=== PATIENT | female | born 1975 | race Hispanic/Latino ===

== ENCOUNTER 2024-06-14 08:36 | Observation (INO) | payer OTHER ==
--- NOTE | 2024-06-13 11:47 | EKG ---
[facility] Test Date: 2024-06-13 Test Time: 12:46:01 Pat Name: TAVIA KINGSLEY Department: [facility] Room: Gender: F Global Account Executive: [id number] : 1975 Requested By: CRISTY VILLARREAL Order Number: [id number] Reading MD: John Glez Measurements Intervals [place] Rate: 47 P: 40 CA: 162 QRS: 6 QRSD: 82 T: 16 QT: 448 QTc: 396 Interpretive Statements Sinus bradycardia No previous ECG available for comparison Electronically Signed On 06-14-2024 07:40:10 PAPER HANGER by John Glez Please click the below link to view image of tracing.
[2024-06-13 11:53] LABS: BASOPHILS # (AUTO) 0.02 K/uL (0.00-0.20); BASOPHILS % (AUTO) 0.4 % (0.0-5.0); EOSINOPHILS # (AUTO) 0.11 K/uL (0.00-0.70); EOSINOPHILS % (AUTO) 2.4 % (0.0-8.0); HEMATOCRIT 40.9 % (36-48); IMMATURE GRANULOCYTE ABSOLUTE 0.01 K/uL (0-1); LYMPHOCYTES # (AUTO) 1.9 K/uL (1.0-4.8); LYMPHOCYTES % (AUTO) 40.8 % (21.0-51.0); MEAN CORPUSCULAR HEMOGLOBIN 29.9 pg (27.0-33.0); MEAN CORPUSCULAR HGB CONC 33.5 g/dL (32.0-36.0); MEAN CORPUSCULAR VOLUME 89.3 fL (79-99); MONOCYTES # (AUTO) 0.3 K/uL (0.1-1.0); MONOCYTES % (AUTO) 5.9 % (3.0-13.0); NEUTROPHILS # (AUTO) 2.3 K/uL (1.8-7.7); NEUTROPHILS % (AUTO) 50.3 % (40.0-77.0); PLATELET COUNT (AUTO) 268 K/uL (130-400); RED BLOOD CELL COUNT(AUTO) 4.58 MIL/uL (4.00-5.50); WHITE BLOOD COUNT (AUTO) 4.6 K/uL (4.8-10.8)
[2024-06-13 12:08] LABS: CREATININE 0.7 mg/dL (0.5-1.0); POTASSIUM 4.5 mmol/L (3.5-5.1)
[2024-06-13 12:21] VITALS: BP 127/69; PULSE 65; RESP 18; TEMP 98.3
--- NOTE | 2024-06-13 13:14 | NUR ---
report dr goldberg reviewed ekg. ok to proceed
[2024-06-14] VITALS (29 sets, daily range): BP systolic 105–146; BP diastolic 59–88; PULSE 58–91; RESP 14–20; TEMP 97.4–98.1; O2SAT 98
[~2024-06-14] VITALS: Ht 152.4 cm; Wt 73.0 kg
[~2024-06-14 08:36] MED LIST: FAMO40TA7 PO
[2024-06-14] MEDS: LACTATED RINGERS 1000ML 1,000 ML IV ONE ×2 (09:47→16:49)
[2024-06-14] MEDS: ceFAZolin SODIUM 2 GM VIAL ONE (09:47)
[2024-06-14] MEDS ORDERED: TOPI25TA48 PO (09:48)
[2024-06-14] MEDS ORDERED: rocuRONium bROMide 10MG/1ML 5ML VL ONE ×2 (11:37→13:20)
[2024-06-14] MEDS ORDERED: MIDAZOLAM HCL 1 MG/ML 2ML VIAL ONE (11:37)
[2024-06-14] MEDS ORDERED: proPOFol 10 MG/ML 20ML VIAL IV ONE (11:37)
[2024-06-14] MEDS ORDERED: SUCCINYLCHOLINE CHLORIDE 20 MG/ML 10 ML VIAL ONE (11:37)
[2024-06-14] MEDS ORDERED: LIDOCAINE PF 100MG/5ML (2%) SYRINGE 5ML ONE (11:37)
[2024-06-14] MEDS ORDERED: FENTanyl CITRate PF 50 MCG/1 ML 5ML AMP IV ONE (11:38)
[2024-06-14] MEDS ORDERED: BUPIvacaine/PF 0.5% 30ML VIAL ONE (11:53)
[2024-06-14] MEDS ORDERED: phenylEPHRINE HCL 10 MG/ML 1ML VIAL IV ONE (12:33)
[2024-06-14] MEDS ORDERED: EPINEPHrine PF 1MG (1:1,000) 1 MG/ML AMP ONE (12:44)
[2024-06-14] MEDS ORDERED: GLYCOPYRROLATE 0.2 MG/ML 5 ML VIAL ONE (14:04)
[2024-06-14] MEDS ORDERED: NEOSTIGMINE METHYLSULFATE 1MG/ML IV ONE (14:04)
[2024-06-14] MEDS: acetaMINOPHEN 100 ML ONE (14:29)
[2024-06-14] MEDS: LACTATED RINGERS 1000ML 1,000 ML IV SCH (14:30)
[2024-06-14] MEDS ORDERED: ondanSETRON 4MG INJ IVP PRN (14:30)
[2024-06-14] MEDS ORDERED: PROCHLORPERAZINE 10MG/2ML INJ IV PRN (14:30)
--- NOTE | 2024-06-14 14:40 | OP ---
Operative Note: DATE OF PROCEDURE: 06/14/24 SURGEON: CRISTY VILLARREAL MD CHAIN SALES CONSULTANT: [Please review operative record] ANESTHESIA: [General and local] ANESTHESIOLOGIST/COOK COLD MEAT: [Please review operative record] PREOPERATIVE DIAGNOSIS: [Diaphragmatic hernia, severe gastroesophageal reflux disease] POSTOPERATIVE DIAGNOSIS: [Diaphragmatic hernia (measuring 4 cm with incarcerated fundus), severe gastroesophageal reflux disease] SYNOPSIS: [Diaphragmatic hernia measuring 4 cm with incarcerated fundus, successfully reduced, primarily repaired, reinforced with mesh. Anterior partial fundoplication due to history of Schatzki's ring] PROCEDURE: [Robotic assisted laparoscopic hiatal hernia repair with mesh reinforcement, anterior partial fundoplication, intraoperative EGD.] ESTIMATED BLOOD LOSS: [20 cc] INDICATIONS: [Patient is a 49-year-old female with chronic heartburn who was found to have a medium-sized hiatal hernia and esophagitis in addition to Schatzki's ring on EGD, upper GI confirming gastroesophageal reflux disease. Patient failed medical therapy with acid reducing medication and dietary changes. Recommendation was given for hiatal hernia repair with fundoplication. Risks, benefits, alternatives were discussed with the patient. All questions were answered. Patient agreed to proceed with surgical procedure] DESCRIPTION OF PROCEDURE: [After appropriate consent was obtained, the patient was transferred to the operating room and placed in supine position on the operating table. SCDs were placed, preop antibiotics were given. Patient underwent induction of general anesthesia, endotracheal intubation. Patient was then prepped and draped in usual sterile fashion time-out was performed. Through a left subcostal incision, Veress needle was inserted into the peritoneal cavity. Insufflation was allowed to 12 mmHg. Through a infraumbilical incision, 8 mm trocar and laparoscope were inserted into the peritoneal cavity using [employer]. The Veress needle and this vicinity were examined with no signs of injury. Rest of my trocars were all placed under direct visualization. Patient was positioned on a reverse Trendelenburg at 20. The Ezequiel robot was docked at this time. Upon evaluation of the diaphragmatic hiatus, there was a 4 cm diaphragmatic defect containing incarcerated cardia of the stomach. Our dissection began by incising the hepato gastric ligament in a avascular plane. This was followed cephalad towards the diaphragm using vessel sealer. The hiatal orifice was dissected circumferentially using vessel sealer. Right crura was identified and a plane was developed between the right yancy in the right polyp the esophagus this dissection was accomplished with a combination of both vessel severe and blunt dissection. On the posterior aspect of the esophagus, the left yancy was identified and this dissection was followed towards the left yancy. A few short gastrics were divided in order to fully mobilize the fundus. Once the esophagus was fully mobilized, we focused in the intra mediastinal dissection. Again this was accomplished with mostly blunt dissection and very little vessel sealer dissection. Once it was 3 cm of intra-abdominal esophagus, we then passed the endoscope through the mouth into the esophagus and into the stomach. With the endoscope in place, we then proceeded to perform our cruroplasty. This was achieved by approximating the left and right crura on the posterior aspect of the esophagus using two 0 V lock nonabsorbable suture in a running fashion. At the end of the crural plasty only one instrument was able to pass through the diaphragmatic hiatus. A [address] mesh with a horseshoe configuration was then used to reinforce the repair. This mesh was sutured in place using 3-0 V lock absorbable suture in a running fashion, and a couple of simple interrupted 2-0 silk throws. At this time we focused on creating a partial anterior fu ndoplication (Abdi). Of note, the endoscope remained in the stomach during this whole time. The fundus was grasped and passed from left to right anterior to the esophagus and sutured in place to the right yancy and diaphragm using 2-0 silk suture in a running fashion. Endoscopy with insufflation revealed no air leak, no stenosis through the GE junction, appropriate reduction of the hiatal hernia, and an intact wrap. At this time we completed the hernia repair. The Ezequiel robot was undocked. Final inspection revealed adequate hemostasis, no concerns for leakage. The abdomen was allowed to deflate. All instruments were removed. Counts were correct at the end of the case. Skin incisions were closed with 4-0 Monocryl. Dermabond was applied over the incisions. Patient tolerated the procedure well. Patient transferred to recovery in good condition.] CRISTY VILLARREAL MD Jun 14, 2024 14:40
[2024-06-14] MEDS: MEPERIDINE-PF 100 MG/ML SYG ONE (14:49)
--- NOTE | 2024-06-14 16:45 | NUR ---
RECEIVED REPORT FROM YENI SANCHEZ AT BEDSIDE USING SBAR. PATIENT SLEEPING IN BED, SPOUSE AT BEDSIDE. S/P LAPAROSCOPIC HIATAL HERNIA REPAIR WITH DIANA FUNDOPLACATION. INCISIONS TO ABDMONEN X 7, APPROXIMATED WITH DERMABOND, NO BLEEDING OR DRAINAGE NOTED.
--- NOTE | 2024-06-14 16:45 | NUR ---
Has remainded stable with VS wnl. Deies pain but admitted to feeling some pressure to abdomen. Trained on IS with RT. Minimal effort offered. Refused clear liquids at this time. at bedside appearing supportive. Pending bed upstairs. HS aware. Reported off to Nurse, Elizabet JAIME
[2024-06-14] MEDS: HYDROcod/acetaMINOPHEN 7.5/325 MG 15 ML UDCUP PO PRN (18:47)
--- NOTE | 2024-06-14 19:00 | NUR ---
REPORT GIVEN VIA PHONE TO YENI RAMOS USING SBAR, ALL QUESTIONS ANSWERED. WILL BE TAKING PATIENT UPSTAIRS TO ROOM 330 VIA BED.
--- NOTE | 2024-06-14 19:41 | NUR ---
PATIENT TRANSFERED TO ROOM 330 VIA BED BY PRIMARY NURSE AND YENI MUNIZ. PATIENT AAOX3, NO C/O PAIN AT THIS TIME. PATIENT ASSESSED BY RECEIVING NURSE.
[2024-06-14] MEDS: topIRAMate 25 MG TABLET PO SCH (20:29)
[2024-06-14] MEDS: ENOXAPARIN SODIUM 30 MG/0.3 ML SQ SCH (20:31)
[2024-06-14] MEDS: hydroMORPHone 0.5 MG SYG (0.5MG/0.5ML) IVP PRN (20:42)
[2024-06-15 00:45] VITALS: BP 135/78; PULSE 57; RESP 20; TEMP 98
[2024-06-15] MEDS: ketOROlac 15MG/ML VIAL (15MG/ML) IV PRN (01:31)
[2024-06-15 01:45] VITALS: BP 132/72; PULSE 57; RESP 20; TEMP 98.2
[2024-06-15 04:00] VITALS: BP 111/60; PULSE 56; RESP 20; TEMP 97.8
--- NOTE | 2024-06-15 08:40 | DS ---
Discharge Summary Assessment Patient is postop day one status post hiatal hernia repair by my partner Dr. Fatima. She is alert and awake in bed this morning when I visit. She is tolerating liquids by mouth. Her only complaint is mild shoulder discomfort. Vital signs are stable. She has been ambulating. She is meeting on benchmarks for discharge. Hospital Course As above. Patient has been given instructions regarding lifting restrictions until seen in clinic. Clinic appointment scheduled for next week. Medications have been called into pharmacy. Patient has instructions regarding postoperative diet and will be discharged home on full liquids with the ability to transition to pureed type foods in the next 5-7 days as tolerated. Okay to resume all home medications. GEORGE HOWELL MD Jun 15, 2024 08:40
[2024-06-15 08:43] VITALS: BP 130/78; PULSE 71; RESP 20; TEMP 98.2
[2024-06-15 08:44] VITALS: BP_SYST 121; BP_SYST 130; BP_DIAS 60; BP_DIAS 78; PULSE 71; PULSE 87; RESP 18; RESP 20; TEMP 98.2
[2024-06-15 10:35] VITALS: O2SAT 98
[2024-06-15] MEDS: PANTOPrazole 40 MG/VIAL IVP SCH (10:35)
--- NOTE | 2024-06-15 14:13 | NUR ---
DISCHARGE PT PIV DC'D PT VERBALIZED UNDERSTANDING OF DISCHARGE INSTRUCTIONS PT GATHERED AND TOOK ALL BELONGINGS PT HAD NO FURTHER QUESTIONS AT TIME OF DISCHARGE
--- NOTE | 2024-06-15 14:30 | NUR ---
Nutritional Note: Pt denied n/v, NKFA, problems chewing/swallowing, MVI. Pt reported PO intake 50%, does not have appetite, UB 183lb, last BM 06/12/24. Provided MNT fundoplication diet and GERD, handouts were provided in [place]. Pt was agreeable to Saul nonflavored for surgical wound healing. Pt adherence expectance is good. 12% recent weight loss since February. Recommendations: - Continue full liquid diet - When medically feasible, advance diet to GI soft/bland food - Prostat Jello 30 ml qd TID all trays - Order Saul non-flavored 8oz BID lunch and Dinner tray - Monitor PO intake - Encourage PO intake as able -Consider appetite stimulant if PO intake <50% - Consider MVI QD - Monitor BM - Consider stool softener if no BM for <3 days - Reweigh as able - Monitor care goals RD to follow + 1-2 days available for consult per protocol SIGNED BY DIETETIC STUDENT CHELSEA SIMMONS Addendum: 06/15/24 at [address] Amended: Links added.
--- NOTE | 2024-06-15 15:52 | NUR ---
Pt DC home before PT eval was rendered
== END 2024-06-15 14:00 | disposition home or self-care (01) ==
LOC: DAH 08:36 → INTOOBSV 08:37 → DAHIP 08:37 → 3AH 19:45
PROVIDERS: ADMIT Surgery; ATTEND Surgery
DX: K44.9 Diaphragmatic hernia without obstruction or gangrene (principal); K21.00 Gastro-esophageal reflux disease with esophagitis, without bleeding; K21.9 Gastro-esophageal reflux disease without esophagitis; Z79.899 Other long term (current) drug therapy; Z98.890 Other specified postprocedural states
CPT/HCPCS: 43282; S2900; 36415; 43235; 80048; 84703; 85025; 86850; 86900; 86901; 93005; 96372; 96374; 96375; G0378; J0171; J0330; J1171; J1650; J1885; J2003; J2175; J2250; J2371; J2470; J2704; J2710; J3010; J3490; J7120; A4213; A4215; A4216; A4221; A4222; A4223; A4600; A4663; A4930; A6260; C1781; J0665; J0690